=== PATIENT | male | born 1945 | race Caucasian/White ===

== ENCOUNTER → 2022-07-18 | Day surgery (SDC) | payer OTHER ==
[~2022-07-18] VITALS: Ht 167.6 cm; Wt 56.7 kg
[~2022-07-18] MED LIST: ASPIRIN EC81 MG PO; ATORVASTATIN CA40 MG PO; CLOPIDOGREL75 MG PO; TRELEGY ELLIPT1 EAC1 INH; VENTOLIN HFA IN18 GM INH
== END | disposition home or self-care (01) ==
LOC: FAS 07:27
DX: K63.5 Polyp of colon (principal); K29.50 Unspecified chronic gastritis without bleeding; D50.9 Iron deficiency anemia, unspecified; K92.1 Melena; K62.89 Other specified diseases of anus and rectum; I10 Essential (primary) hypertension; Z79.82 Long term (current) use of aspirin; Z79.899 Other long term (current) drug therapy; Z87.891 Personal history of nicotine dependence
CPT/HCPCS: 93005; J2250; J2704; J7120